=== PATIENT | male | born 1965 | race African-American/Black ===

== ENCOUNTER 2016-10-07 09:23 | Inpatient (IN) | payer OTHER ==
[2016-10-07 10:15] VITALS: BMI 27.1
--- NOTE | 2016-10-07 12:43 | HP ---
COWS - Scale Resting Pulse: 0= [place] 80 or Below Sweatin=Flushed/Facial Moisture Restless Observation: 3= Extraneous Movement Pupil Size: 2= Moderately Dilated Bone or Joint Aches: 2= Severe Diffuse Aches Runny Nose/ Eye Tearin= Runny Nose/Eyes GI Upset > 30mins: 3= Vomiting/Diarrhea Tremor Observation: 2= Slight Tremor Visible Yawning Observation: 2= >3x During Session Anxiety or Irritability: 2=Irritable/Anxious Goose Flesh Skin: 0=Smooth Skin COWS Score: 20 CIWA Score - CIWA Score Nausea/Vomitin Muscle Tremors: 3 Anxiety: 3 Agitation: 3 Paroxysmal Sweats: 2 Orientation: 0-Oriented Tacttile Disturbances: 2-Mild Itch/Numbness/Burn Auditory Disturbances: 2-Mild Harshness/Frighten Visual Disturbances: 2-Mild Sensitivity Headache: 2-Mild CIWA-Ar Total Score: 22 Admission ROS BHS - HPI Chief Complaint: i need help to stop using heroin,alcohol,cocaine Allergies/Adverse Reactions: Allergies Allergy/AdvReac Type Severity Reaction Status Date / Time fish derived Allergy Severe Rash Verified 10/07/16 10:47 No Known Drug Allergies Allergy Verified 10/07/16 10:47 History of Present Illness: this 51 years old male with heroin,alcohol.cocaine dependence,withdrawal symptom ,last detox [facility] 10/09/13 to 10/16/13 nicotine dependence weight loss longest period of sobriety 3 years - Ebola screening Have you traveled outside of the country in the last 21 days: No Have you had contact with anyone from an Ebola affected area: No Have you been sick,other than usual withdrawal symptoms: No Do you have a fever: No - Review of Systems Constitutional: Chills, Diaphoresis, Loss of Appetite, Malaise, Night Sweats, Changes in sleep, Unintentional Wgt. Loss EENT: reports: Tearing, Nose Congestion Respiratory: reports: No Symptoms reported Cardiac: reports: Palpitations GI: reports: Diarrhea, Nausea, Poor Appetite, Vomiting : reports: No Symptoms Reported Musculoskeletal: reports: Joint Pain, Muscle Pain, Joint Stiffness Integumentary: reports: Dryness Neuro: reports: Headache, Tremors Endocrine: reports: No Symptoms Reported Hematology: reports: No Symptoms Reported Psychiatric: reports: No Sypmtoms Reported Other Systems: Reviewed and Negative Patient History - Patient Medical History Hx Anemia: No Hx Asthma: No Hx Chronic Obstructive Pulmonary Disease (COPD): No Hx Cancer: No Hx Cardiac Disorders: No Hx Congestive Heart Failure: No Hx Hypertension: No Hx Hypercholesterolemia: No Hx Pacemaker: No HX Cerebrovascular Accident: No Hx Seizures: No Hx Diabetes: No Hx Gastrointestinal Disorders: No Hx Liver Disease: No Hx Genitourinary Disorders: No Hx Sexually Transmitted Disorders: No Hx Renal Disease (ESRD): No Hx Thyroid Disease: No Hx Human Immunodeficiency Virus (HIV): No (NEGATIVE IN 03/2012) Hx Hepatitis C: No Hx Depression: No Hx Suicide Attempt: No Hx Bipolar Disorder: No Hx Schizophrenia: No Other Medical History: no suicidal,no homicidal - Patient Surgical History Past Surgical History: Yes Hx Neurologic Surgery: No Hx Cataract Extraction: No Hx Cardiac Surgery: No Hx Lung Surgery: No Hx Breast Surgery: No Hx Breast Biopsy: No Hx Abdominal Surgery: No Hx Appendectomy: Yes (AT 14 YRS OLD) Hx Cholecystectomy: No Hx Genitourinary Surgery: No Hx Section: No Hx Orthopedic Surgery: Yes (FX OF RIGHT PINKY AND LEFT MIDDLE FINGER FROM BASKET BALL INJURY) Anesthesia Reaction: No - PPD History Previous Implant?: Yes Documented Results: Positive w/o proof Implanted On Prior [facility] Admission?: No PPD to be Administered?: No - Smoking Cessation Smoking history: Former smoker Have you smoked in the past 12 months: Yes Aproximately how many cigarettes per day: 0 If you are a former smoker, when did you quit?: 1 month Hx Chewing Tobacco Use: No Initiated information on smoking cessation: No 'Breaking Loose' booklet given: 10/07/16 - Substance & Tx. History Hx Alcohol Use: Yes Hx Substance Use: Yes Substance Use Type: Alcohol, Cocaine, Heroin - Substances Abused Alcohol Route: Oral Frequency: Daily Amount used: pedrito(1\4 pint) Age of first use: 14 Date of Last Use: 10/07/16 Heroin Route: Inhalation Frequency: Daily Amount used: 3 bags Age of first use: 30 Date of Last Use: 10/07/16 Cocaine Route: Smoking Frequency: Daily Amount used: 1/2 gram Age of first use: 30 Date of Last Use: 10/06/16 Family Disease History - Family Disease History Family Disease History: Diabetes: Grandparent (GRANDMOTHER), Mother Admission Physical Exam BHS - Vital Signs Vital Signs: Vital Signs - 24 hr 10/07/16 09:53 Temperature 97.5 F L Pulse Rate 71 Respiratory 18 Rate Blood Pressure 111/68 - Physical General Appearance: Yes: Moderate Distress, Tremorous, Irritable, Sweating, Anxious HEENTM: Yes: Normal ENT Inspection, Normocephalic, Nasal Congestion, Rhinorrhea Respiratory: Yes: Lungs Clear, Normal Breath Sounds, No Respiratory Distress Neck: Yes: Within Normal Limits, Supple, Trachea in good position Breast: Yes: Within Normal Limits Cardiology: Yes: Within Normal Limits, Regular Rhythm, Regular Rate, S1, S2 Abdominal: Yes: Within Normal Limits, Normal Bowel Sounds, Non Tender, Flat, Soft Genitourinary: Yes: Within Normal Limits Back: Yes: Muscle Spasm Musculoskeletal: Yes: Back pain, Joint Stiffness, Muscle Pain Extremities: Yes: Tremors 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, Fully Oriented, Alert, Motor Strength 5/5 Integumentary: Yes: Dry Lymphatic: Yes: Within Normal Limits - Diagnostic (1) Opioid dependence with withdrawal Current Visit: Yes Status: Acute (2) Alcohol dependence with uncomplicated withdrawal Current Visit: Yes Status: Acute (3) Cocaine dependence Current Visit: No Status: Active (4) PPD positive Current Visit: No Status: Acute (5) Weight loss Current Visit: Yes Status: Acute (6) Nicotine dependence Current Visit: Yes Status: Acute Cleared for Admission [facility] - Detox or Rehab [facility] Level of Care: Medically Managed Detox Regimen/Protocol: Methadone/Librium [facility] Breath Alcohol Content Breath Alcohol Content: 0 Urine Drug Screen - Results Drug Screen Negative: No Urine Drug Screen Results: SHANE-Cocaine, OPI-Opiates
[2016-10-07] MEDS ORDERED: MAGNESIUM CITRATE 300 ML BOTTLE PO PRN (12:57)
[2016-10-07] MEDS ORDERED: MAGNESIUM HYDROX 2400MG/30ML ORAL SUSPENSION 30 ML CUP PO PRN (12:57)
[2016-10-07] MEDS ORDERED: guaiFENesin/D-METHORPHAN HB 10 ML UNIT-DOSE CUPS PO PRN (12:57)
[2016-10-07] MEDS ORDERED: MENTHOL/PHENOL 1 EACH UD MM PRN (12:57)
[2016-10-07] MEDS ORDERED: hydrOXYzine PAMOATE 50 MG CAPSULE (FP) PO PRN (12:57)
[2016-10-07] MEDS ORDERED: chlordiazePOXIDE HCL 25 MG CAPSULE PO PRN (12:57)
[2016-10-07] MEDS ORDERED: MAG HYDROX/AL HYDROX/SIMETH 30 ML UNIT-DOSE CUP PO PRN (12:57)
[2016-10-07] MEDS ORDERED: LOPERAMIDE HCL 2 MG CAPSULE PO PRN (12:57)
[2016-10-07] MEDS ORDERED: ACETAMINOPHEN 325 MG TABLET (FP) PO PRN (12:57)
[2016-10-07] MEDS ORDERED: P-EPHED 60MG/TRIPROLIDI 2.5MG TABLET PO PRN (12:57)
[2016-10-07] MEDS ORDERED: chlordiazePOXIDE HCL 25 MG CAPSULE PO ONE (13:30)
[2016-10-07] MEDS ORDERED: METHADONE HCL 10 MG TABLET (FOR DETOX USE ONLY) PO ONE ×2 (13:45→23:00)
[2016-10-07] MEDS: NICOTINE 21 MG/24 HOURS TOPICAL PATCH TD SCH (14:26)
[2016-10-07 14:38] LABS: HIV 1 & 2 AB NEGATIVE; HIV 1 AGp24 NEGATIVE
[2016-10-07] MEDS: IBUPROFEN 400 MG TABLET (FP) PO PRN (15:22)
[2016-10-07] MEDS: chlordiazePOXIDE HCL 25 MG CAPSULE PO SCH ×2 (17:12→22:41)
[2016-10-07 17:19] LABS: URINE APPEARANCE TURBID; URINE BILIRUBIN NEGATIVE (NEGATIVE); URINE BLOOD NEGATIVE (NEGATIVE); URINE COLOR YELLOW; URINE GLUCOSE (UA) NEGATIVE (NEGATIVE); URINE KETONE TRACE (NEGATIVE); URINE LEUK ESTERASE NEGATIVE (NEGATIVE); URINE NITRITE NEGATIVE (NEGATIVE); URINE PROTEIN NEGATIVE (NEGATIVE); URINE UROBILINOGEN NEGATIVE E.U./dl (0.2-1.0)
[2016-10-07] MEDS: THIAMINE HCL 100 MG TABLET (FP) PO SCH (22:41)
[2016-10-07] MEDS: diphenhydrAMINE HCL 50 MG CAPSULE PO PRN (22:43)
[2016-10-08] MEDS: chlordiazePOXIDE HCL 25 MG CAPSULE PO SCH ×4 (06:33→22:20)
[2016-10-08] MEDS ORDERED: METHADONE HCL 10 MG TABLET (FOR DETOX USE ONLY) PO SCH (10:00)
[2016-10-08 10:11] LABS: MCH 29.6 pg (25.7-33.7); MCHC 33.4 g/dl (32.0-35.9); MEAN CELL VOLUME 88.6 fl (80-96); PLATELET COUNT 163 K/MM3 (134-434); RDW 13.7 % (11.9-15.9); WHITE BLOOD COUNT 6.1 K/mm3 (4.0-10.0)
--- NOTE | 2016-10-08 10:37 | PN ---
S CIWA - CIWA Score Nausea/Vomitin-No Nausea/No Vomiting Muscle Tremors: 4-Moderate,w/Arms Extend Anxiety: 3 Agitation: 4-Moderately Restless Paroxysmal Sweats: 3 Orientation: 0-Oriented Tacttile Disturbances: 0-None Auditory Disturbances: 0-None Visual Disturbances: 0-None Headache: 0-None Present CIWA-Ar Total Score: 14 BHS COWS - Scale Resting Pulse: 0= [place] 80 or Below Sweatin=Flushed/Facial Moisture Restless Observation: 1= Difficult to Sit Still Pupil Size: 0= Normal to Room Light Bone or Joint Aches: 2= Severe Diffuse Aches Runny Nose/ Eye Tearin= Nasal Congestion GI Upset > 30mins: 2= Nausea/Diarrhea Tremor Observation of Outstretched Hands: 2= Slight Tremor Visible Yawning Observation: 2= >3x During Session Anxiety or Irritability: 2=Irritable/Anxious Goose Flesh Skin: 0=Smooth Skin COWS Score: 14 S Progress Note (SOAP) Subjective: interrupted sleep sweats shakes body aches irritable Objective: 10/08/16 10:35 Vital Signs Temperature 97.9 F 10/08/16 09:24 Pulse Rate 71 10/08/16 09:24 Respiratory Rate 18 10/08/16 09:24 Blood Pressure 122/71 10/08/16 09:24 O2 Sat by Pulse Oximetry (%) Laboratory Tests 10/07/16 10/07/16 11:25 13:50 Urine Color Yellow Urine Appearance Turbid Urine pH 5.0 Ur Specific [place] 1.033 Urine Protein Negative Urine Glucose (UA) Negative Urine Ketones Trace H Urine Blood Negative Urine Nitrite Negative Urine Bilirubin Negative Urine Urobilinogen Negative Ur Leukocyte Esterase Negative HIV 1&2 Antibody Screen Negative HIV P24 Antigen Negative awake/alert ambulating no acute distress Assessment: 10/08/16 10:37 withdrawal sx Plan: continue detox increase fluids
[2016-10-08] MEDS: ATORVASTATIN CA 10 MG TABLET (FP) PO SCH (10:44)
[2016-10-08] MEDS: PRENATAL VITAMINS W/ FOLIC ACID TABLET (FP) PO SCH (10:44)
[2016-10-08] MEDS: NICOTINE 21 MG/24 HOURS TOPICAL PATCH TD SCH (10:45)
[2016-10-08 11:20] LABS: ALBUMIN 4.1 g/dl (3.4-5.0); BILIRUBIN,TOTAL 0.4 mg/dL (0.2-1.0); CREATININE 1.4 mg/dL (0.7-1.3); TOT PROT 7.3 g/dl (6.4-8.2)
--- NOTE | 2016-10-08 17:18 | EKG ---
Test Reason : Blood Pressure : / mmHG Vent. Rate : 061 BPM Atrial Rate : 061 BPM P-R Int : 132 ms QRS Dur : 102 ms QT Int : 420 ms P-R-T Axes : 058 069 039 degrees QTc Int : 422 ms NORMAL SINUS RHYTHM NORMAL ECG NO PREVIOUS ECGS AVAILABLE Confirmed by LAUREL YUN MD ([id number]) on 10/08/2016 5:18:20 PM Referred By: Bry Hinds Confirmed By:LAUREL YUN MD
[2016-10-08] MEDS: diphenhydrAMINE HCL 50 MG CAPSULE PO PRN (22:20)
[2016-10-08] MEDS: THIAMINE HCL 100 MG TABLET (FP) PO SCH (22:21)
[2016-10-09] MEDS: chlordiazePOXIDE HCL 25 MG CAPSULE PO SCH ×2 (05:10→10:11)
[2016-10-09] MEDS: ATORVASTATIN CA 10 MG TABLET (FP) PO SCH (10:10)
[2016-10-09] MEDS: METHADONE HCL 5 MG TABLET (FOR DETOX USE ONLY) PO SCH (10:11)
[2016-10-09] MEDS: PRENATAL VITAMINS W/ FOLIC ACID TABLET (FP) PO SCH (10:11)
[2016-10-09] MEDS: NICOTINE 21 MG/24 HOURS TOPICAL PATCH TD SCH (10:11)
--- NOTE | 2016-10-09 11:57 | PN ---
S COWS - Scale Resting Pulse: 0= [place] 80 or Below Sweatin= Chills/Flushing Restless Observation: 3= Extraneous Movement Pupil Size: 1= Pupils >than Normal Bone or Joint Aches: 2= Severe Diffuse Aches Runny Nose/ Eye Tearin= Runny Nose/Eyes GI Upset > 30mins: 2= Nausea/Diarrhea Tremor Observation of Outstretched Hands: 2= Slight Tremor Visible Yawning Observation: 1= 1-2x During Session Anxiety or Irritability: 2=Irritable/Anxious Goose Flesh Skin: 0=Smooth Skin COWS Score: 16 S Progress Note (SOAP) Subjective: ALERT,IRRITABLE,ANXIOUS,INTERRUPTED SLEEP,TREMOR,PAIN IN THE BODY AND BACK Objective: 10/09/16 11:54 Vital Signs Temperature 98.6 F 10/09/16 10:11 Pulse Rate 97 H 10/09/16 10:11 Respiratory Rate 20 10/09/16 10:11 Blood Pressure 97/61 10/09/16 10:11 O2 Sat by Pulse Oximetry (%) EKG NSR,NORMAL ECG Laboratory Last Values WBC 6.1 K/mm3 (4.0-10.0) 10/08/16 06:00 RBC 4.55 M/mm3 (4.00-5.60) 10/08/16 06:00 Hgb 13.5 GM/dL (11.7-16.9) 10/08/16 06:00 Hct 40.3 % (35.4-49) 10/08/16 06:00 MCV 88.6 fl (80-96) 10/08/16 06:00 MCHC 33.4 g/dl (32.0-35.9) 10/08/16 06:00 RDW 13.7 % (11.9-15.9) 10/08/16 06:00 Plt Count 163 K/MM3 (134-434) 10/08/16 06:00 MPV 10.0 fl (7.5-11.1) 10/08/16 06:00 Sodium 141 mmol/L (136-145) 10/08/16 06:00 Potassium 3.8 mmol/L (3.5-5.1) 10/08/16 06:00 Chloride 103 mmol/L (98-107) 10/08/16 06:00 Carbon Dioxide 30 mmol/L (21-32) 10/08/16 06:00 Anion Gap 8 (8-16) 10/08/16 06:00 BUN 19 mg/dL (7-18) H 10/08/16 06:00 Creatinine 1.4 mg/dL (0.7-1.3) H 10/08/16 06:00 Creat Clearance w eGFR 53.43 (>60) 10/08/16 06:00 Random Glucose 103 mg/dL (74-106) 10/08/16 06:00 Calcium 9.0 mg/dL (8.5-10.1) 10/08/16 06:00 Total Bilirubin 0.4 mg/dL (0.2-1.0) D 10/08/16 06:00 AST 20 U/L (15-37) 10/08/16 06:00 ALT 22 U/L (12-78) 10/08/16 06:00 Alkaline Phosphatase 67 U/L (45-117) 10/08/16 06:00 Total Protein 7.3 g/dl (6.4-8.2) 10/08/16 06:00 Albumin 4.1 g/dl (3.4-5.0) 10/08/16 06:00 Urine Color Yellow 10/07/16 13:50 Urine Appearance Turbid 10/07/16 13:50 Urine pH 5.0 (5.0-8.0) 10/07/16 13:50 Ur Specific [place] 1.033 (1.001-1.035) 10/07/16 13:50 Urine Protein Negative (NEGATIVE) 10/07/16 13:50 Urine Glucose (UA) Negative (NEGATIVE) 10/07/16 13:50 Urine Ketones Trace (NEGATIVE) H 10/07/16 13:50 Urine Blood Negative (NEGATIVE) 10/07/16 13:50 Urine Nitrite Negative (NEGATIVE) 10/07/16 13:50 Urine Bilirubin Negative (NEGATIVE) 10/07/16 13:50 Urine Urobilinogen Negative E.U./dl (0.2-1.0) 10/07/16 13:50 Ur Leukocyte Esterase Negative (NEGATIVE) 10/07/16 13:50 RPR Titer Nonreactive (NONREACTIVE) 10/08/16 06:00 HIV 1&2 Antibody Screen Negative 10/07/16 11:25 HIV P24 Antigen Negative 10/07/16 11:25 Assessment: 10/09/16 11:55 WITHDRAWAL SYMPTOM Plan: CONTINUE DETOX,ENCOURAGE ORAL FLUID,BUN 19,CREATINE 1.4
[2016-10-09] MEDS: chlordiazePOXIDE 5 MG CAPSULE PO SCH ×2 (17:49→22:30)
[2016-10-09] MEDS: THIAMINE HCL 100 MG TABLET (FP) PO SCH (22:30)
[2016-10-09] MEDS: diphenhydrAMINE HCL 50 MG CAPSULE PO PRN (22:30)
[2016-10-10] MEDS: chlordiazePOXIDE 5 MG CAPSULE PO SCH ×2 (05:13→10:22)
[2016-10-10] MEDS: ATORVASTATIN CA 10 MG TABLET (FP) PO SCH ×2 (10:22→10:57)
[2016-10-10] MEDS: PRENATAL VITAMINS W/ FOLIC ACID TABLET (FP) PO SCH (10:22)
[2016-10-10] MEDS: METHADONE HCL 5 MG TABLET (FOR DETOX USE ONLY) PO SCH (10:23)
[2016-10-10] MEDS: NICOTINE 21 MG/24 HOURS TOPICAL PATCH TD SCH (10:24)
--- NOTE | 2016-10-10 12:00 | PN ---
S Progress Note (SOAP) Subjective: ALERT,IRRITABLE,ANXIOUS SLEEP,PAIN IN THE BODY Objective: 10/10/16 11:59 Vital Signs Temperature 97.9 F 10/10/16 10:00 Pulse Rate 80 10/10/16 10:00 Respiratory Rate 18 10/10/16 10:00 Blood Pressure 96/54 10/10/16 10:00 O2 Sat by Pulse Oximetry (%) Assessment: 10/10/16 11:59 WITHDRAWAL SYMPTOM Plan: CONTINUE DETOX,ENCOURAGE ORAL FLUID,REPEAT CMP IN AM
[2016-10-10] MEDS: chlordiazePOXIDE HCL 10 MG CAPSULE PO SCH ×2 (17:31→22:08)
[2016-10-10] MEDS: THIAMINE HCL 100 MG TABLET (FP) PO SCH (22:07)
[2016-10-10] MEDS: diphenhydrAMINE HCL 50 MG CAPSULE PO PRN (22:08)
[2016-10-11] MEDS: chlordiazePOXIDE HCL 10 MG CAPSULE PO SCH ×2 (05:47→10:10)
[2016-10-11] MEDS ORDERED: METHADONE HCL 10 MG TABLET (FOR DETOX USE ONLY) PO SCH (10:00)
[2016-10-11] MEDS: NICOTINE 21 MG/24 HOURS TOPICAL PATCH TD SCH (10:10)
[2016-10-11] MEDS: ATORVASTATIN CA 10 MG TABLET (FP) PO SCH (10:10)
[2016-10-11] MEDS: PRENATAL VITAMINS W/ FOLIC ACID TABLET (FP) PO SCH (10:10)
[2016-10-11 11:04] LABS: ALBUMIN 3.2 g/dl (3.4-5.0); ANION GAP 9 (8-16); CALCIUM 8.4 mg/dL (8.5-10.1); CO2 29 mmol/L (21-32); GLUCOSE,RANDOM 100 mg/dL (74-106)
[2016-10-11 11:09] LABS: ALK PHOS 56 U/L (45-117); BILIRUBIN,TOTAL 0.2 mg/dL (0.2-1.0); CREATININE 1.1 mg/dL (0.7-1.3); SGOT/AST 26 U/L (15-37); SGPT/ALT 40 U/L (12-78); TOT PROT 6.2 g/dl (6.4-8.2)
[2016-10-11] MEDS: IBUPROFEN 400 MG TABLET (FP) PO PRN (14:11)
--- NOTE | 2016-10-11 16:00 | PN ---
BHS Progress Note (SOAP) Subjective: Interrupted sleep, anxious, sweating; c/o testicles feeling heavy since this morning Objective: 10/11/16 15:57 Last Vital Signs Temp Pulse Resp BP Pulse Ox 97.7 F 84 18 137/65 10/11/16 14:03 10/11/16 14:03 10/11/16 14:03 10/11/16 14:03 Laboratory Tests 10/07/16 10/07/16 10/08/16 11:25 13:50 06:00 WBC 6.1 RBC 4.55 Hgb 13.5 Hct 40.3 MCV 88.6 MCHC 33.4 RDW 13.7 Plt Count 163 MPV 10.0 Sodium Potassium Chloride Carbon Dioxide Anion Gap BUN Creatinine Creat Clearance w eGFR Random Glucose Calcium Total Bilirubin AST ALT Alkaline Phosphatase Total Protein Albumin Urine Color Yellow Urine Appearance Turbid Urine pH 5.0 Ur Specific [place] 1.033 Urine Protein Negative Urine Glucose (UA) Negative Urine Ketones Trace H Urine Blood Negative Urine Nitrite Negative Urine Bilirubin Negative Urine Urobilinogen Negative Ur Leukocyte Esterase Negative RPR Titer HIV 1&2 Antibody Screen Negative HIV P24 Antigen Negative 10/08/16 10/08/16 10/11/16 06:00 06:00 07:30 WBC RBC Hgb Hct MCV MCHC RDW Plt Count MPV Sodium 141 141 Potassium 3.8 4.1 Chloride 103 103 Carbon Dioxide 30 29 Anion Gap 8 9 BUN 19 H 10 D Creatinine 1.4 H 1.1 D Creat Clearance w eGFR 53.43 > 60 Random Glucose 103 100 Calcium 9.0 8.4 L Total Bilirubin 0.4 D 0.2 D AST 20 26 D ALT 22 40 D Alkaline Phosphatase 67 56 Total Protein 7.3 6.2 L Albumin 4.1 3.2 L D Urine Color Urine Appearance Urine pH Ur Specific [place] Urine Protein Urine Glucose (UA) Urine Ketones Urine Blood Urine Nitrite Urine Bilirubin Urine Urobilinogen Ur Leukocyte Esterase RPR Titer Nonreactive HIV 1&2 Antibody Screen HIV P24 Antigen Labs noted Assessment: 10/11/16 15:58 Withdrawal symptoms c/o b/l testicular discomfort Plan: Continue detox Testicular discomfort: continue motrin prn (motrin effective as per patient)
[2016-10-11] MEDS ORDERED: ZOLPIDEM TARTRATE 5 MG TABLET PO PRN (22:00)
[2016-10-11] MEDS: THIAMINE HCL 100 MG TABLET (FP) PO SCH (22:02)
[2016-10-12] MEDS: IBUPROFEN 400 MG TABLET (FP) PO PRN (05:14)
[2016-10-12] MEDS ORDERED: METHADONE HCL 5 MG TABLET (FOR DETOX USE ONLY) PO SCH (06:00)
[2016-10-12] MEDS ORDERED: COLLOIDAL OATMEAL 1 BAR EACH TP PRN (09:03)
--- NOTE | 2016-10-12 10:18 | DS ---
[facility] Detox Discharge Summary Admission Date: 10/07/16 Discharge Date: 10/12/16 - History Present History: Alcohol Dependence, Cocaine Dependence, Opioid Dependence - Physical Exam Results Vital Signs: Vital Signs Temperature 98.1 F 10/12/16 06:00 Pulse Rate 76 10/12/16 06:00 Respiratory Rate 18 10/12/16 06:00 Blood Pressure 95/67 10/12/16 06:00 O2 Sat by Pulse Oximetry (%) - Treatment Hospital Course: Detox Protocol Followed, Detoxed Safely, Responded well, Discharged Condition Good - Medication Discharge Medications: Ambulatory Orders Atorvastatin Ca [Lipitor] 10 mg PO DAILY 10/07/16 - Diagnosis (1) Alcohol dependence with uncomplicated withdrawal Current Visit: Yes Status: Chronic (2) Nicotine dependence Current Visit: Yes Status: Chronic Qualifiers: Nicotine product type: cigarettes Substance use status: uncomplicated Qualified Code(s): F17.210 - Nicotine dependence, cigarettes, uncomplicated (3) Opioid dependence with withdrawal Current Visit: Yes Status: Chronic (4) Weight loss Current Visit: Yes Status: Chronic (5) Cocaine dependence Current Visit: Yes Status: Chronic - AMA Did Patient Leave Against Medical Advice: No
[2016-10-12 10:31] VITALS: BP 125/78; PULSE 88; TEMP 98.6
[2016-10-12] MEDS: NICOTINE 21 MG/24 HOURS TOPICAL PATCH TD SCH (10:56)
[2016-10-12] MEDS: PRENATAL VITAMINS W/ FOLIC ACID TABLET (FP) PO SCH (10:57)
[2016-10-12] MEDS: ATORVASTATIN CA 10 MG TABLET (FP) PO SCH (10:57)
== END 2016-10-12 12:00 | disposition other institution (70) | DRG 773 ==
LOC: YASAS 09:23 → Y6N 11:37
PROVIDERS: ADMIT Internal Medicine Addiction Medicine; ATTEND Internal Medicine Addiction Medicine
PROC: HZ2ZZZZ Detoxification Services for Substance Abuse Treatment (ICD-10-PCS; principal; 2016-10-07)
DX: F11.23 Opioid dependence with withdrawal (principal); F10.230 Alcohol dependence with withdrawal, uncomplicated; F14.20 Cocaine dependence, uncomplicated; F17.210 Nicotine dependence, cigarettes, uncomplicated; R76.11 Nonspecific reaction to tuberculin skin test without active tuberculosis; N50.812 Left testicular pain; N50.811 Right testicular pain; Z87.898 Personal history of other specified conditions
CPT/HCPCS: 36415; 71020-TC; 80053; 81003; 85027; 86593; 87389; 93005; 93010

== ENCOUNTER 2016-10-12 12:07 | Inpatient (IN) | payer OTHER ==
[2016-10-12] MEDS ORDERED: MAGNESIUM HYDROX 2400MG/30ML ORAL SUSPENSION 30 ML CUP PO PRN (13:26)
[2016-10-12] MEDS ORDERED: guaiFENesin/D-METHORPHAN HB 10 ML UNIT-DOSE CUPS PO PRN (13:26)
[2016-10-12] MEDS ORDERED: MAGNESIUM CITRATE 300 ML BOTTLE PO PRN (13:26)
[2016-10-12] MEDS ORDERED: LOPERAMIDE HCL 2 MG CAPSULE PO PRN (13:26)
[2016-10-12] MEDS ORDERED: diphenhydrAMINE HCL 50 MG CAPSULE PO PRN (13:26)
[2016-10-12] MEDS ORDERED: NICOTINE POLACRILEX 4 MG GUM BUC PRN (13:26)
[2016-10-12] MEDS ORDERED: ACETAMINOPHEN 325 MG TABLET (FP) PO PRN (13:26)
[2016-10-12] MEDS ORDERED: MAG HYDROX/AL HYDROX/SIMETH 30 ML UNIT-DOSE CUP PO PRN (13:26)
[2016-10-12] MEDS ORDERED: MENTHOL/PHENOL 1 EACH UD MM PRN (13:26)
[2016-10-12] MEDS ORDERED: P-EPHED 60MG/TRIPROLIDI 2.5MG TABLET PO PRN (13:26)
--- NOTE | 2016-10-12 16:37 | HP ---
[facility] Rehab Assess/Revision - Admission History Admitted to Rehab from: [facility] Date of Admission to Rehab: 10/12/16 - Vital signs Vital Signs: Vital Signs Period Temp Pulse Resp BP Sys/Alcazar Pulse Ox Last 24 Hr 96.8 F 83 18 131/69 - Findings Detox History & Physical reviewed: Yes Concur with findings: Yes Comments/Additional Findings: TRANSFERRED FROM DETOX TO REHAB ADMISSION PER PROTOCOL
[2016-10-12] MEDS: IBUPROFEN 400 MG TABLET (FP) PO PRN (20:03)
[2016-10-12] MEDS: THIAMINE HCL 100 MG TABLET (FP) PO SCH (21:35)
[2016-10-13] MEDS: IBUPROFEN 400 MG TABLET (FP) PO PRN (06:19)
[2016-10-13] MEDS: PRENATAL VITAMINS W/ FOLIC ACID TABLET (FP) PO SCH (09:37)
[2016-10-13] MEDS: ATORVASTATIN CA 10 MG TABLET (FP) PO SCH (09:37)
[2016-10-13] MEDS: NICOTINE 21 MG/24 HOURS TOPICAL PATCH TD SCH (09:38)
[2016-10-13] MEDS: CYCLOBENZAPRINE HCL 10 MG TABLET (FP) PO PRN ×2 (13:03→18:11)
--- NOTE | 2016-10-13 13:40 | HP ---
Psychiatrist Admission - Data Date of interview: 10/13/16 Admission source: [facility] Identifying data: This is the first 5N inpatient rehabilitation admission for this 51 year old black male residing with his in [place] apartment. Medical History: high cholesterol, appendectomy at the age of 14 yrs, right middle finger and pinky, fractured in 2006 while playing basket ball. Psychiatric History: patient denies history of psychiatric treatment, reports he has diffifulty at nights, he is unable to fall and maintain sleep, Benadryl not effective. Vital Signs: Vital Signs - 24 hr 10/13/16 10/13/16 10/13/16 00:30 03:30 07:08 Temperature 97.5 F L Pulse Rate 61 Respiratory 18 18 18 Rate Blood Pressure 111/59 Allergies/Adverse Reactions: Allergies Allergy/AdvReac Type Severity Reaction Status Date / Time fish derived Allergy Severe Rash Verified 10/12/16 12:55 No Known Drug Allergies Allergy Verified 10/12/16 12:55 Date of last physical exam: 10/07/16 Concur with the findings of this exam: Yes - Substance Abuse/Tx History Hx Alcohol Use: Yes Substance Use Type: Alcohol (wine ), Cocaine (1/2 gr), Heroin (3-4 bags daily) Hx Substance Use Treatment: Yes (Arms achers) - Admission Criteria Previous failed treatment: Yes Poor recovery environment: Yes Comorbidities: No Lacks judgement: Yes Mental Status Exam - Mental Status Exam Alert and Oriented to: Time, Place, Person Cognitive Function: Grossly Intact Patient Appearance: Well Groomed Mood: Hopeful Affect: Appropriate, Mood Congruent Patient Behavior: Appropriate, Cooperative Speech Pattern: Clear, Appropriate Voice Loudness: Normal Thought Process: Intact, Goal Oriented Thought Disorder: Not Present Hallucinations: Denies Suicidal Ideation: Denies Homicidal Ideation: Denies Insight/Judgement: Fair Sleep: Poorly, Difficulty falling asleep Appetite: Fair Muscle strength/Tone: Normal Gait/Station: Normal Psychiatric Findings - Problem List ([address] 1, 2,3) (1) Alcohol dependence Current Visit: No Status: Active (2) Opioid dependence Current Visit: No Status: Active (3) Cocaine dependence Current Visit: No Status: Chronic (4) Nicotine dependence Current Visit: No Status: Chronic Qualifiers: Nicotine product type: cigarettes Substance use status: uncomplicated Qualified Code(s): F17.210 - Nicotine dependence, cigarettes, uncomplicated (5) Substance-induced sleep disorder Current Visit: Yes Status: Acute - Initial Treatment Plan Initial Treatment Plan: indications/properties of Sinequan dicussed with the patient, he is willing to try, will start and monitor progress.
[2016-10-13] MEDS: THIAMINE HCL 100 MG TABLET (FP) PO SCH (21:32)
[2016-10-13] MEDS: DOXEPIN HCL 25 MG CAPSULE PO SCH (21:32)
[2016-10-14] MEDS: PRENATAL VITAMINS W/ FOLIC ACID TABLET (FP) PO SCH (10:42)
[2016-10-14] MEDS: NICOTINE 21 MG/24 HOURS TOPICAL PATCH TD SCH (10:43)
[2016-10-14] MEDS: ATORVASTATIN CA 10 MG TABLET (FP) PO SCH (10:43)
[2016-10-14] MEDS: CYCLOBENZAPRINE HCL 10 MG TABLET (FP) PO PRN (10:44)
[2016-10-14] MEDS: THIAMINE HCL 100 MG TABLET (FP) PO SCH (21:34)
[2016-10-14] MEDS: DOXEPIN HCL 25 MG CAPSULE PO SCH (21:34)
[2016-10-15] MEDS: PRENATAL VITAMINS W/ FOLIC ACID TABLET (FP) PO SCH (10:35)
[2016-10-15] MEDS: ATORVASTATIN CA 10 MG TABLET (FP) PO SCH (10:35)
[2016-10-15] MEDS: NICOTINE 21 MG/24 HOURS TOPICAL PATCH TD SCH (10:36)
[2016-10-15] MEDS: CYCLOBENZAPRINE HCL 10 MG TABLET (FP) PO PRN ×2 (11:02→19:39)
[2016-10-15] MEDS: DOXEPIN HCL 25 MG CAPSULE PO SCH (21:46)
[2016-10-15] MEDS: THIAMINE HCL 100 MG TABLET (FP) PO SCH (21:46)
[2016-10-16] MEDS: PRENATAL VITAMINS W/ FOLIC ACID TABLET (FP) PO SCH (10:42)
[2016-10-16] MEDS: ATORVASTATIN CA 10 MG TABLET (FP) PO SCH (10:42)
[2016-10-16] MEDS: NICOTINE 21 MG/24 HOURS TOPICAL PATCH TD SCH (10:42)
[2016-10-16] MEDS: CYCLOBENZAPRINE HCL 10 MG TABLET (FP) PO PRN (10:43)
--- NOTE | 2016-10-16 13:17 | PN ---
BHS Progress Note Note: XRAY OF LUMBOSACRAL SPINE SHOWED DEGENERATIVE CHANGES MOST PRONOUNCED AT L3 L4 PATIENT WILL FOLLOW UP WITH PMD UPON DISCHARGE MOTRIN 400 MGS PO Q 6 HRS PRN FOR PAIN
[2016-10-16] MEDS: DOXEPIN HCL 25 MG CAPSULE PO SCH (21:38)
[2016-10-16] MEDS: THIAMINE HCL 100 MG TABLET (FP) PO SCH (21:39)
[2016-10-17] MEDS: PRENATAL VITAMINS W/ FOLIC ACID TABLET (FP) PO SCH (10:33)
[2016-10-17] MEDS: NICOTINE 21 MG/24 HOURS TOPICAL PATCH TD SCH (10:33)
[2016-10-17] MEDS: ATORVASTATIN CA 10 MG TABLET (FP) PO SCH (10:33)
[2016-10-17] MEDS: THIAMINE HCL 100 MG TABLET (FP) PO SCH (21:20)
[2016-10-17] MEDS: DOXEPIN HCL 25 MG CAPSULE PO SCH (21:20)
[2016-10-18] MEDS: ATORVASTATIN CA 10 MG TABLET (FP) PO SCH (10:38)
[2016-10-18] MEDS: PRENATAL VITAMINS W/ FOLIC ACID TABLET (FP) PO SCH (10:38)
[2016-10-18] MEDS: NICOTINE 21 MG/24 HOURS TOPICAL PATCH TD SCH (10:38)
[2016-10-18] MEDS: DOXEPIN HCL 25 MG CAPSULE PO SCH (21:39)
[2016-10-18] MEDS: THIAMINE HCL 100 MG TABLET (FP) PO SCH (21:39)
[2016-10-19] MEDS: ATORVASTATIN CA 10 MG TABLET (FP) PO SCH (10:30)
[2016-10-19] MEDS: NICOTINE 21 MG/24 HOURS TOPICAL PATCH TD SCH (10:30)
[2016-10-19] MEDS: PRENATAL VITAMINS W/ FOLIC ACID TABLET (FP) PO SCH (10:30)
--- NOTE | 2016-10-19 11:46 | PN ---
Psychiatric Progress Note Vital Signs: Vital Signs Period Temp Pulse Resp BP Sys/Alcazar Pulse Ox Last 24 Hr 97.4 F 75 16-18 117/71 Date of Session: 10/19/16 Chief Complaint:: progress update HPI: Patient is addressing alcohol, opioid, cocaine, nicotine dependence comorbid substance induced sleep disorder. ROS: WNL Current Medications: Active Medications Generic Name Dose Route Start Last Admin Trade Name Freq PRN Reason Stop Dose Admin Acetaminophen 650 mg 10/12/16 13:26 10/12/16 21:35 Tylenol - PO 650 mg Q4H PRN Administration FEVER OR PAIN Al Hydroxide/Mg Hydroxide 30 ml 10/12/16 13:26 Mylanta Oral Suspension - PO Q6H PRN DYSPEPSIA Atorvastatin Calcium 10 mg 10/13/16 10:00 10/19/16 10:30 Lipitor - PO 10 mg DAILY ZELDA Administration Diphenhydramine HCl 50 mg 10/12/16 13:26 10/12/16 21:35 Benadryl - PO 50 mg HSMR1 PRN Administration FOR ITCHING Eucalyptus/Menthol/Phenol/Sorbitol 1 each 10/12/16 13:26 Cepastat Lozenge - MM Q4H PRN SORE THROAT Guaifenesin 10 ml 10/12/16 13:26 Robitussin Dm - PO Q6H PRN COUGH Ibuprofen 400 mg 10/12/16 13:26 10/13/16 06:19 Motrin - PO 400 mg Q6H PRN Administration PAIN Loperamide HCl 4 mg 10/12/16 13:26 Imodium - PO Q6H PRN DIARRHEA Magnesium Hydroxide 30 ml 10/12/16 13:26 Milk Of Magnesia - PO DAILY PRN CONSTIPATION Nicotine 21 mg 10/13/16 10:00 10/19/16 10:30 Nicoderm Patch - TD 21 mg DAILY ZELDA Administration Nicotine Polacrilex 4 mg 10/12/16 13:26 Nicorette Gum - BUC Q2H PRN NICOTINE REPLACEMENT RX Multivit/Folic Acid/Iron 1 tab 10/13/16 10:00 10/19/16 10:30 Vitamins ([facility]) - PO 1 tab DAILY ZELDA Administration Pseudoephedrine/Triprolidine 1 combo 10/12/16 13:26 Actifed - PO TID PRN NASAL CONGESTION Thiamine HCl 100 mg 10/12/16 22:00 04/02/17 21:39 Vitamin B1 - PO Not Given HS ZELDA Current Side Effect: No Lab tests ordered: No Lab tests reviewed: Yes Provider note:: Patient was seen today, was referred by the staff, as per staff patient was refusing HS medications. Met with the patient to explore reasons, patient admits that medication is effective, he has been sleeping better, no side-effects reported, he jsu wants to take medication as needed and not as scheduled, will make changes and monitor progress. Total face to face time:: 25 Mental Status Exam - Mental Status Exam Alert and Oriented to: Time, Place, Person Cognitive Function: Good Patient Appearance: Well Groomed Mood: Hopeful Affect: Appropriate Patient Behavior: Appropriate, Cooperative Speech Pattern: Clear, Appropriate Voice Loudness: Normal Thought Process: Intact, Goal Oriented Thought Disorder: Not Present Hallucinations: Denies Suicidal Ideation: Denies Homicidal Ideation: Denies Insight/Judgement: Fair Sleep: Well Appetite: Good Muscle strength/Tone: Normal Gait/Station: Normal Psychiatric Treatment Plan - Problem List (1) Alcohol dependence Current Visit: No (2) Opioid dependence Current Visit: No (3) Cocaine dependence Current Visit: No (4) Nicotine dependence Current Visit: No Qualifiers: Nicotine product type: cigarettes Substance use status: uncomplicated Qualified Code(s): F17.210 - Nicotine dependence, cigarettes, uncomplicated (5) Substance-induced sleep disorder Current Visit: Yes
[2016-10-19] MEDS ORDERED: COLLOIDAL OATMEAL 1 BAR EACH TP PRN (13:37)
[2016-10-19] MEDS: THIAMINE HCL 100 MG TABLET (FP) PO SCH (21:40)
[2016-10-19] MEDS: DOXEPIN HCL 25 MG CAPSULE PO PRN (21:41)
[2016-10-20] MEDS: ATORVASTATIN CA 10 MG TABLET (FP) PO SCH (10:23)
[2016-10-20] MEDS: PRENATAL VITAMINS W/ FOLIC ACID TABLET (FP) PO SCH (10:23)
[2016-10-20] MEDS: NICOTINE 21 MG/24 HOURS TOPICAL PATCH TD SCH (10:24)
[2016-10-20] MEDS: CYCLOBENZAPRINE HCL 10 MG TABLET (FP) PO PRN ×2 (13:18→21:36)
[2016-10-20 15:48] LABS: URINE APPEARANCE CLEAR; URINE BILIRUBIN NEGATIVE (NEGATIVE); URINE BLOOD NEGATIVE (NEGATIVE); URINE COLOR YELLOW; URINE GLUCOSE (UA) NEGATIVE (NEGATIVE); URINE KETONE NEGATIVE (NEGATIVE); URINE LEUK ESTERASE NEGATIVE (NEGATIVE); URINE NITRITE NEGATIVE (NEGATIVE); URINE PROTEIN NEGATIVE (NEGATIVE); URINE UROBILINOGEN NEGATIVE E.U./dl (0.2-1.0)
[2016-10-20] MEDS: THIAMINE HCL 100 MG TABLET (FP) PO SCH (21:35)
[2016-10-20] MEDS: DOXEPIN HCL 25 MG CAPSULE PO PRN (21:36)
[2016-10-21 07:09] VITALS: BP 115/68; PULSE 73; TEMP 97.4
[2016-10-21] MEDS: NICOTINE 21 MG/24 HOURS TOPICAL PATCH TD SCH (10:21)
[2016-10-21] MEDS: ATORVASTATIN CA 10 MG TABLET (FP) PO SCH (10:21)
[2016-10-21] MEDS: PRENATAL VITAMINS W/ FOLIC ACID TABLET (FP) PO SCH (10:21)
--- NOTE | 2016-10-21 11:04 | PN ---
Psychiatric Progress Note Vital Signs: Vital Signs Period Temp Pulse Resp BP Sys/Alcazar Pulse Ox Last 24 Hr 97.4 F 73 18-18 115/68 Date of Session: 10/21/16 Chief Complaint:: discharge visit HPI: Patient has addressed alcohol, opioid, cocaine, nicotine dependence comorbid substance induced sleep disorder. ROS: WNL Current Medications: Active Medications Generic Name Dose Route Start Last Admin Trade Name Freq PRN Reason Stop Dose Admin Acetaminophen 650 mg 10/12/16 13:26 10/12/16 21:35 Tylenol - PO 650 mg Q4H PRN Administration FEVER OR PAIN Al Hydroxide/Mg Hydroxide 30 ml 10/12/16 13:26 Mylanta Oral Suspension - PO Q6H PRN DYSPEPSIA Atorvastatin Calcium 10 mg 10/13/16 10:00 10/21/16 10:21 Lipitor - PO 10 mg DAILY ZELDA Administration Colloidal Oatmeal 1 applic 10/19/16 13:37 10/20/16 13:57 Aveeno Soap - TP 1 bar DAILY PRN Administration HYGEINE Cyclobenzaprine HCl 10 mg 10/19/16 13:36 10/20/16 21:36 Flexeril - PO 10 mg TID PRN Administration MUSCLE SPASMS Diphenhydramine HCl 50 mg 10/12/16 13:26 10/12/16 21:35 Benadryl - PO 50 mg HSMR1 PRN Administration FOR ITCHING Doxepin HCl 25 mg 10/19/16 11:37 10/20/16 21:36 Sinequan - PO 25 mg HS PRN Administration INSOMNIA Eucalyptus/Menthol/Phenol/Sorbitol 1 each 10/12/16 13:26 Cepastat Lozenge - MM Q4H PRN SORE THROAT Guaifenesin 10 ml 10/12/16 13:26 Robitussin Dm - PO Q6H PRN COUGH Ibuprofen 400 mg 10/12/16 13:26 10/13/16 06:19 Motrin - PO 400 mg Q6H PRN Administration PAIN Loperamide HCl 4 mg 10/12/16 13:26 Imodium - PO Q6H PRN DIARRHEA Magnesium Hydroxide 30 ml 10/12/16 13:26 Milk Of Magnesia - PO DAILY PRN CONSTIPATION Nicotine 21 mg 10/13/16 10:00 10/21/16 10:21 Nicoderm Patch - TD Not Given DAILY ZELDA Nicotine Polacrilex 4 mg 10/12/16 13:26 Nicorette Gum - BUC Q2H PRN NICOTINE REPLACEMENT RX Multivit/Folic Acid/Iron 1 tab 10/13/16 10:00 10/21/16 10:21 Vitamins (Sj[facility]) - PO 1 tab DAILY ZELDA Administration Pseudoephedrine/Triprolidine 1 combo 10/12/16 13:26 Actifed - PO TID PRN NASAL CONGESTION Thiamine HCl 100 mg 10/12/16 22:00 10/20/16 21:35 Vitamin B1 - PO 100 mg HS ZELDA Administration Current Side Effect: No Lab tests ordered: No Lab tests reviewed: Yes Provider note:: The patient has completed today his treatment and met his goals , will continue to address his issues in [facility] outpatient treatment program in [place]. Patient gained insights into his addiction and verbalized motivations to stay sober and adherent ot every aspects of his outpatient treatment plans, Sinequan well tolerated, patient reports his sleep is improved, scripts provided, patient is stable for discharge today. Total face to face time:: 30 Mental Status Exam - Mental Status Exam Alert and Oriented to: Time, Place, Person Cognitive Function: Good Patient Appearance: Well Groomed Mood: Hopeful Affect: Appropriate, Mood Congruent Patient Behavior: Appropriate, Cooperative Speech Pattern: Clear, Appropriate Voice Loudness: Normal Thought Process: Intact, Goal Oriented Thought Disorder: Not Present Hallucinations: Denies Suicidal Ideation: Denies Homicidal Ideation: Denies Insight/Judgement: Fair Sleep: Well Appetite: Good Muscle strength/Tone: Normal Gait/Station: Normal Psychiatric Treatment Plan - Problem List (1) Alcohol dependence Current Visit: No (2) Opioid dependence Current Visit: No (3) Cocaine dependence Current Visit: No (4) Nicotine dependence Current Visit: No Qualifiers: Nicotine product type: cigarettes Substance use status: uncomplicated Qualified Code(s): F17.210 - Nicotine dependence, cigarettes, uncomplicated (5) Substance-induced sleep disorder Current Visit: Yes
== END 2016-10-21 11:05 | disposition home or self-care (01) | DRG 772 ==
LOC: YASAS 12:07 → Y5N 12:08
PROVIDERS: ADMIT Psychiatry & Neurology Psychiatry; ATTEND Psychiatry & Neurology Psychiatry
PROC: HZ42ZZZ Group Counseling for Substance Abuse Treatment, Cognitive-Behavioral (ICD-10-PCS; principal; 2016-10-12)
DX: F11.20 Opioid dependence, uncomplicated (principal); F10.20 Alcohol dependence, uncomplicated; F14.20 Cocaine dependence, uncomplicated; F17.210 Nicotine dependence, cigarettes, uncomplicated; F19.282 Other psychoactive substance dependence with psychoactive substance-induced sleep disorder
CPT/HCPCS: 72100-TC; 81003